=== PATIENT | female | born 1985 | race American Indian/Alaskan Native ===

== ENCOUNTER 2021-03-08 13:32 | Emergency (ER) | payer MEDICAID ==
[2021-03-08] MEDS ORDERED: ONDANSETRON 4 MG/2 ML INJ IV ONE (16:09)
[2021-03-08] MEDS ORDERED: LACTATED RINGERS 1,000 ML IV ONE (16:09)
--- NOTE | 2021-03-08 16:17 | Emergency Department Report ---
ED Alcohol HPI - General Chief Complaint: Alcohol Stated Complaint: DETOX Time Seen by Provider: 03/08/21 16:02 Source: patient Mode of arrival: Ambulatory Limitations: No Limitations - History of Present Illness Initial Comments: Patient presents requesting inpatient detox from alcohol. She drinks cognac. She is drinks a bottle an hour and she drinks every day. She states her last drink was 2 days ago. She also admits to drinking wine. Patient has never been through detox before. She has been in a psychiatric facility however. Patient states that she has not quit drinking for more than 2 days at a time. At that time, she had GI upset. She did not have seizures related to this. She did not have tremors related to alcohol. She has never blacked out related to alcohol. Regardless, she is here today requesting inpatient detox for alcohol. - Related Data Previous Rx's Medication Instructions Recorded Last Taken Type Ondansetron [Zofran ODT TAB] 8 mg PO Q8HR PRN #20 tab.rapdis 03/08/21 Unknown Rx hydrOXYzine HCL [Atarax] 25 mg PO Q6HR PRN #20 tablet 03/08/21 Unknown Rx Allergies Allergy/AdvReac Type Severity Reaction Status Date / Time acetaminophen [From Percocet] AdvReac Hives Verified 03/08/21 15:48 oxycodone [From Percocet] AdvReac Hives Verified 03/08/21 15:48 prochlorperazine AdvReac Angioedema Verified 03/08/21 15:48 [From Compazine] ED Review of Systems ROS: Stated complaint: DETOX Other details as noted in HPI Comment: All other systems reviewed and negative Constitutional: denies: fever Eyes: denies: eye pain ENT: denies: ear pain Respiratory: denies: cough Cardiovascular: denies: chest pain Endocrine: denies: unexplained weight loss Gastrointestinal: denies: abdominal pain Genitourinary: denies: dysuria Musculoskeletal: denies: back pain Skin: denies: rash Neurological: denies: headache Hematological/Lymphatic: denies: easy bruising ED Past Medical Hx - Past Medical History Hx Psychiatric Treatment: Yes Additional medical history: Alcoholism - Family History Family history: other (Alcoholism) - Social History Substance Use Type: Alcohol - Medications Home Medications: Home Medications Medication Instructions Recorded Confirmed Last Taken Type Ondansetron [Zofran ODT TAB] 8 mg PO Q8HR PRN #20 tab.rapdis 03/08/21 Unknown Rx hydrOXYzine HCL [Atarax] 25 mg PO Q6HR PRN #20 tablet 03/08/21 Unknown Rx ED Physical Exam - General Limitations: No Limitations, Other (Pulse ox noted and normal) General appearance: alert, in no apparent distress - Head Head exam: Present: atraumatic, normocephalic - Eye Eye exam: Present: normal appearance, EOMI. Absent: scleral icterus - ENT ENT exam: Present: normal orophraynx, normal external ear exam - Neck Neck exam: Present: normal inspection. Absent: meningismus - Respiratory Respiratory exam: Present: normal lung sounds bilaterally. Absent: respiratory distress - Cardiovascular Cardiovascular Exam: Present: regular rate, normal rhythm - GI/Abdominal GI/Abdominal exam: Present: soft. Absent: distended, tenderness - Extremities Exam Extremities exam: Present: normal capillary refill. Absent: calf tenderness - Back Exam Back exam: Absent: CVA tenderness (R), CVA tenderness (L) - Neurological Exam Neurological exam: Present: alert, oriented X3, CN II-XII intact, normal gait, reflexes normal, other (No tremor). Absent: motor sensory deficit - Psychiatric Psychiatric exam: Present: normal affect, normal mood - Skin Skin exam: Present: warm, dry ED Course Vital Signs 03/08/21 03/08/21 03/08/21 15:45 16:45 17:05 Temperature 98.9 F Pulse Rate 74 86 83 Respiratory 18 14 15 Rate Blood Pressure 134/74 111/66 116/71 [Left] O2 Sat by Pulse 99 100 95 Oximetry - Reevaluation(s) Reevaluation #1: 03/08/21 16:17 Labs were ordered. Old records noted. Reevaluation #2: 03/08/21 17:22 Labs are noted. CIWA score was 1. Patient was discharged. ED Medical Decision Making - Lab Data Result diagrams: 03/08/21 16:18 - Medical Decision Making Patient presents requesting admission for alcohol withdrawal. She does not meet criteria for alcohol withdrawal admission. She has a CIWA score of 1. She is not unstable. There is no electrolyte derangement. She was treated symptomatically and referred for outpatient evaluation and follow-up. Critical care attestation.: If time is entered above; I have spent that time in minutes in the direct care of this critically ill patient, excluding procedure time. ED Disposition Clinical Impression: Alcohol abuse Disposition: 01 HOME / SELF CARE / HOMELESS Is pt being admited?: No Condition: Stable Instructions: Alcohol Use Disorder, Substance Use Disorder and Mental Illness, Alcohol Abuse and Nutrition Additional Instructions: Drink any water. Return for problems. Take a multivitamin every day. Avoid alcohol. Follow-up with the referral physician as well as outpatient resources provided. Prescriptions: hydrOXYzine HCL [Atarax] 25 mg PO Q6HR PRN #20 tablet PRN Reason: TREMOR Ondansetron [Zofran ODT TAB] 8 mg PO Q8HR PRN #20 tab.rapdis PRN Reason: Nausea Referrals: PRIMARY CAREMD [Referring] - 3-5 Days RAUL STACY MD [Staff Physician] - 3-5 Days
[2021-03-08 17:06] VITALS: BP 116/71
[2021-03-08 17:09] LABS: Alanine Aminotransferase 10 units/L (7-56); Albumin 4.1 g/dL (3.9-5); BUN/Creatinine Ratio 14; Blood Urea Nitrogen 11 mg/dL (7-17); Hemolysis Index 7
[2021-03-08 17:23] LABS: Bilirubin,Direct < 0.2 mg/dL (0-0.2)
== END 2021-03-08 17:52 | disposition home or self-care (01) ==
LOC: ED 13:32
DX: F10.20 Alcohol dependence, uncomplicated (principal); Y90.9 Presence of alcohol in blood, level not specified; Z88.8 Allergy status to other drugs, medicaments and biological substances; Z91.09 Other allergy status, other than to drugs and biological substances; Z79.899 Other long term (current) drug therapy
CPT/HCPCS: 36415; 80048; 80076; 83735; 96361; 96374; 99283; J2405; J7120